=== PATIENT | male | born 1930 | race Caucasian/White ===

== ENCOUNTER 2016-06-10 15:01 | Inpatient (IN) | payer MEDICARE, OTHER ==
--- NOTE | ~2016-06-10 | CN ---
Consultation Report [place] [id number] [facility] [place]. [address] NAME: JAGDISH HUDSON : 31 STATUS : ADM IN PAT#: [id number] AGE: 85 ADM/REG DATE : 06/10/16 MR#: [id number] REPORT SERV DATE: 06/14/16 DICTATED BY: SIENNA MARTIN DATE: 06/14/16 REPORT STATUS : Draft TRANSCRIBED BY: MODL DATE: 06/14/16 PULMONARY CONSULTATION DATE OF CONSULTATION: 06/14/2016 REASON FOR CONSULTATION: Hypoxia and possible aspiration. HISTORY OF PRESENT ILLNESS: Note the history is taken primarily per the medical record. Mr. Dubon is an 85-year-old white male with history of asthma and post CVA dysphagia, who was admitted with cellulitis and alf acquired pneumonia. He was responding well to treatment with Maxipime and vancomycin, but had questionable aspiration yesterday with subsequent increase in his oxygen requirement, so Pulmonary was consulted for assistance. The patient is doing better today with improved oxygenation, though he is complaining of shortness of breath. He denies cough. He is requesting "more breathing treatments." PAST MEDICAL HISTORY: 1. Asthma. 2. 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 3. Diabetes mellitus. 4. Hypertension. 5. Hypothyroidism. 6. Anxiety/depression. 7. Dementia. 8. Nephrolithiasis. 9. Right sphenoid mass. 10.Previous appendectomy. 11.Previous incisional hernia repair. 12.Partial colectomy. FAMILY HISTORY: No documented family history of pulmonary disease in the available medical record. SOCIAL HISTORY: Per available medical records, the patient is a nonsmoker. He does not drink alcohol. He is a full-time resident of [facility]. 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 He is and has two children. MEDICATIONS: Per the available information, the patient was on no outpatient pulmonary medications. The outpatient and inpatient medications were reviewed and are as documented in the record. Consultation Report [id number] [place]. [address] NAME: JAGDISH HUDSON : 31 STATUS : ADM IN PAT#: [id number] AGE: 85 ADM/REG DATE : 06/10/16 MR#: [id number] REPORT SERV DATE: 06/14/16 DICTATED BY: SIENNA MARTIN DATE: 06/14/16 REPORT STATUS : Draft TRANSCRIBED BY: AMAN DATE: 06/14/16 ALLERGIES: PROCAINE. REVIEW OF SYSTEMS: A very limited system review was conducted and is remarkable for dyspnea as described in the history of present illness: PHYSICAL EXAMINATION: VITAL SIGNS: Temperature 98.7, heart rate 68, blood pressure 198/78, respiratory rate 16, oxygen saturation 99% on supplemental oxygen at a flow rate of 3 L/minute. GENERAL: Elderly white male. Alert, appropriate, in no apparent distress. HEENT: Normocephalic and atraumatic. There is no scleral icterus. The conjunctivae are clear. The oropharynx is clear. NECK: Supple. No lymphadenopathy was appreciated. LUNGS: Fair effort. There are diminished breath sounds at both bases with the left being greater than the right. The lungs are otherwise clear to auscultation with no wheezes, crackles, or rhonchi. HEART: Regular rate and rhythm. No ectopy was noted. ABDOMEN: Soft, nontender, nondistended. There are normal bowel sounds in all four quadrants. BILATERAL EXTREMITIES: There is significant right lower extremity swelling. Additionally, there is swelling and tenderness of the right upper extremity. There is no cyanosis or clubbing. NEUROLOGICAL: A limited exam was conducted and is remarkable for left facial droop and some left-sided weakness. SKIN: There are multiple hyperpigmented raised macules on the neck and chest. LABORATORY RESULTS: The labs were reviewed and are as documented in the record. Notable labs include a procalcitonin on admission of 4.68. The procalcitonin today is 1.61. Arterial blood gas done yesterday, 06/13/2016, was pH 7.46, pCO2 of 35, and pO2 of 110 on 100% supplemental oxygen. The white blood cell count today is 12.1. The lactate on admission was 3.1. IMAGING: The chest x-ray done today revealed cardiomegaly and bilateral effusions with associated atelectasis. The CT angiogram done this admission did not reveal any pulmonary embolism. There is a moderate left-sided pleural effusion and a small right-sided pleural effusion with associated bilateral atelectasis. There is cardiomegaly, but no infiltrates were noted. ASSESSMENT AND PLAN: Mr. Jagdish Hudson is an 85-year-old white male with asthma, who is being treated for a alf acquired pneumonia and cellulitis. He has significant atelectasis and bilateral pleural effusions noted on chest imaging. Additionally, he has ongoing aspiration as documented by Speech Therapy. There is some question of aspiration Consultation Report [address] [place] [place] [place]. [address] NAME: JAGDISH HUDSON : 32 STATUS : ADM IN [facility]#: [id number] AGE: 85 ADM/REG DATE : 06/10/16 MR#: [id number] REPORT SERV DATE: 06/14/16 DICTATED BY: SIENNA MARTIN DATE: 06/14/16 REPORT STATUS : Draft TRANSCRIBED BY: AMAN DATE: 06/14/16 yesterday. He has been responding well to Maxipime and vancomycin. He appears to be better today and closer to his baseline, though he continues to complain of shortness of breath. Recommend continuing antibiotics. As noted, he is responding well to Maxipime and vancomycin. Would increase the frequency of his bronchodilators from q.6 hours to q.4 hours. Recommend improving pulmonary toilet by adding EzPAP to his regimen. Wean his supplemental oxygen as tolerated. Recommend adding a nebulized steroid, budesonide 0.5 mg twice daily will be added to his regimen. As noted, Speech Therapy indicates he is high risk for recurrent aspiration. Would follow their recommendations regarding his oral intake. Would watch his fluid status, check his BNP and diurese if necessary. Thank you very much for this consultation. PS/AMAN Sienna Martin M.D. / [id number] CC: Mary Thomson M.D.
--- NOTE | ~2016-06-10 | CN ---
Consultation Report [facility] [address] [place]. [address] NAME: THIAGO HUDSON : 32 STATUS : ADM IN [facility]#: [id number] AGE: 85 ADM/REG DATE : 06/10/16 MR#: [id number] REPORT SERV DATE: 06/12/16 DICTATED BY: AMPARO WILLIAM DATE: 06/11/16 REPORT STATUS : Draft TRANSCRIBED BY: MODL DATE: 06/11/16 HAND CONSULTATION DATE OF CONSULTATION: 06/11/2016 REASON FOR CONSULTATION: Right upper extremity hand and wrist pain. History of questionable fall, gout versus septic arthritis. HISTORY OF PRESENT ILLNESS: Mr. Hudson is an 85-year-old right-hand dominant gentleman who is a [facility] resident status post CVA affecting his left upper extremity who is admitted on the 06/10/2016 with sepsis, pneumonia, and cellulitis and was also complaining of right upper extremity pain. He had a questionable fall on Saturday per his family members, although the patient does not recall it. He says the right shoulder and wrist and hand has been hurting since. He has a very limited motion and he is unable to really localize his pain. Denies any history of gallop or otherwise denies any other trauma. No formal treatments. Had x-rays which were reported in the ER of that shoulder to be negative. He has been on IV antibiotics for the sepsis and the cellulitis. PAST MEDICAL HISTORY: Significant for CVA. He is a [facility] resident. Diabetes, nephrolithiasis, asthma, hypertension, hypothyroidism, anxiety, dementia. SURGICAL HISTORY: Includes partial colectomy, appendectomy, incisional hernia surgery. ALLERGIES: PROCAINE. MEDICATIONS: Please see the list. REVIEW OF SYSTEMS: Negative, except as above. PHYSICAL EXAMINATION: Resting comfortably in the hospital bed. Examination of the left upper extremity. Essentially, no active motion, very limited active motion secondary to the stroke. There is no tenderness. There are no external signs of trauma. There is no erythema or warmth or ecchymosis. Examination of the right upper extremity, he is tender about the shoulder, upper arm, elbow, forearm, wrist, and hand, more so dorsally than volarly. There is some pitting edema on the dorsal aspect of his forearm, wrist, and hands. I do not appreciate an effusion in the joint. He is diffusely tender over the dorsal aspect of the forearm, wrist, and hand. It is not focal. He has no pain with passive motion about his wrist joint. No signs or symptoms of septic arthritis. At this time, no significant tenderness in his digits. He has a limited resolution manager secondary to pain. Grossly neurovascularly intact to light touch. There is no significant erythema or ecchymosis. No external signs of trauma. No focal bony tenderness. Active range of motion is limited secondary to pain. Consultation Report [place] [address] [place]. [address] NAME: THIAGO HUDSON : 32 STATUS : ADM IN PAT#: [id number] AGE: 85 ADM/REG DATE : 06/10/16 MR#: [id number] REPORT SERV DATE: 06/12/16 DICTATED BY: AMPARO WILLIAM DATE: 06/11/16 REPORT STATUS : Draft TRANSCRIBED BY: AMAN DATE: 06/11/16 STUDIES: X-rays of the right wrist and hand were reviewed, suboptimal technique, perhaps due to his pain, but no discrete fractures or joint abnormalities are visualized. ASSESSMENT AND PLAN: An 85-year-old with right upper arm, hand, and wrist pain. At this point, I would recommend a splint as needed for comfort, active range of motion and elevation of the distal extremity. The exam at this point is not consistent with a septic joint given the dorsal edema and pain, perhaps early cellulitis. I do not believe the aspiration is indicated. Given the more diffuse nature of the pain, I will monitor his course on IV antibiotics in the next 24 hours if he fails to improve, then we may proceed with a steroid injection in the wrist joint, but again I do not believe that is the only focus of his pain and this may be more of a diffuse contusion secondary to a fall and/or superficial infectious process, however, we will continue to monitor his clinical course with you. PERCY paro William M.D. / [id number] CC: Raphael Mya, Mary Darden M.D.
--- NOTE | ~2016-06-10 | DS ---
Discharge Summary [place] [address] [place]. [address] NAME: THIAGO PUCKETT : 32 STATUS : DIS IN PAT#: [id number] AGE: 85 ADM/REG DATE : 06/10/16 MR#: [id number] REPORT SERV DATE: 06/20/16 DICTATED BY: RAPHAEL ROQUE DATE: 06/19/16 REPORT STATUS : Draft TRANSCRIBED BY: MODL DATE: 06/19/16 ADMISSION DATE: 06/10/2016 DISCHARGE DATE: 06/19/2016 DISCHARGE DIAGNOSES: 1. Acute on chronic respiratory failure. 2. Pneumonia. 3. Recent fall with injury to the right upper extremity. 4. Remote history of cerebrovascular accident. 5. Type 2 diabetes mellitus. 6. Hypertension. 7. Hypothyroidism. 8. Dementia. 9. Cellulitis. 10.Anxiety disorder. 11.History of nephrolithiasis. 12.Wheelchair and [facility]bound state at the [facility]. CONSULTANTS DURING THIS HOSPITALIZATION: Orthopedic Surgery and Pulmonology. INVASIVE PROCEDURES AND IMAGING DONE DURING THIS HOSPITALIZATION: Please refer to interim summary dictated by Dr. Reina on 06/18/2016. BRIEF HISTORY OF PRESENT ILLNESS: The patient is an 85-year-old male with multiple medical issues, who was at [facility], came to the hospital with complaints of shortness of breath, cellulitis, recent fall with injury. So, he was admitted. For detailed history and physical exam, please see note dictated by Dr. Weston Dodd on 06/10/2016. HOSPITAL COURSE: After being admitted to the hospital, this patient was cared for by Dr. Reina. Please refer to interim summary dictated by Dr. Reina on 06/18/2016. I took over this patient's care on 06/19/2016. When I saw this patient preparations for hospice and enrollment in hospice were already underway. Hospice saw the patient, and patient was accepted in hospice. No further changes were made. All other antibiotics were discontinued as well as his Dobhoff tube was discontinued. This patient had severe dysphagia on his swallow study and it was best that this patient be placed in hospice. The patient is being discharged to [facility] facility with hospice. DISPOSITION: Will be at the skilled facility with hospice. ACTIVITY: As tolerated. DIET: As tolerated. MEDICATIONS: Will be deferred to hospice. FOLLOWUP: Will be done by hospice. Discharge Summary [place] [address] [place]. [address] NAME: THIAGO PUCKETT : 31 STATUS : DIS IN PAT#: [id number] AGE: 85 ADM/REG DATE : 06/10/16 MR#: [id number] REPORT SERV DATE: 06/20/16 DICTATED BY: RAPHAEL ROQUE DATE: 06/19/16 REPORT STATUS : Draft TRANSCRIBED BY: AMAN DATE: 06/19/16 More than 25 minutes spent planning this patient's discharge, reconciling medications, discussing hospice with the daughter at the bedside, and arranging proper transfer to senior care facility with hospice. INNA/AMAN Raphael Roque M.D. / [id number] CC: Mary Murphy M.D.
--- NOTE | ~2016-06-10 | HP ---
History And Physical [address] [id number] [place]. [address] NAME: THIAGO PUCKETT : 32 STATUS : ADM IN PAT#: [id number] AGE: 85 ADM/REG DATE : 06/10/16 MR#: [id number] REPORT SERV DATE: 06/10/16 DICTATED BY: PHILL SINGH DATE: 06/10/16 REPORT STATUS : Draft TRANSCRIBED BY: MODL DATE: 06/10/16 DATE OF ADMISSION: 06/10/2016 CHIEF COMPLAINT: An 85-year-old male presenting from [facility] with shortness of breath and severe right leg cellulitis. HISTORY OF PRESENT ILLNESS: The patient's history was obtained through careful interview with the patient and son coupled with review of [facility] medical records. The patient about six days ago was trying to transfer at the nursing facility and had a severe fall. He apparently has had right arm and shoulder pain ever since that time. He does not want to use his right hand and arm at all. He is unable to describe a precise severity or quality of that pain, but he has been "hollering" out because of pain often. Another concern has been problems with redness of his legs over several months, but over the last several days, his right leg has had extreme rosa red erythema with increasing pain and swelling. It has become hot to the touch, but there has been no ulcerations or purulent drainage. Also, over these last several days, he has had one episode of severe nausea and vomiting (about five days ago) without recurrence. There has been no diarrhea. No aspiration event that has been witnessed despite the vomiting episode. He has had shortness of breath characterized by dyspnea on exertion, but no orthopnea. His breathing is described as "hard, infrequent." Today, he was extremely lethargic and more confused. He "slept all day long" and was difficult to arouse with a poor appetite. He describes a slight nonproductive cough. No chest pain. No leg pain currently. No abdominal pain. No headache. No back pain. REVIEW OF SYSTEMS: Otherwise, a 14-point review of systems was obtained and was negative. PAST MEDICAL HISTORY: 1. 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 2. Diabetes. 3. Nephrolithiasis. 4. Asthma. 5. Hypertension. 6. Hypothyroidism. 7. Right sphenoid sinus mass. 8. Anxiety. 9. Dementia. History And Physical [address] [address] NAME: THIAGO PUCKETT : 32 STATUS : ADM IN PAT#: [id number] AGE: 85 ADM/REG DATE : 06/10/16 MR#: [id number] REPORT SERV DATE: 06/10/16 DICTATED BY: PHILL SINGH DATE: 06/10/16 REPORT STATUS : Draft TRANSCRIBED BY: AMAN DATE: 06/10/16 PAST SURGICAL HISTORY: 1. Partial colectomy. 2. Appendectomy. 3. Incisional hernia repair. ALLERGIES: PROCAINE. SOCIAL HISTORY: No tobacco abuse. No alcohol abuse. He is . Resides full-time at [facility]. He is wheelchair bound. Retired from doing shipping and loading work. He has a son and a daughter who live locally and help look after him. One of his sons has been debilitated by stroke and is at [facility] as well. FAMILY HISTORY: Son with stroke, chronic correction resident as well. Mother at 92 years of age. Siblings and father with diabetes. CURRENT MEDICATIONS: Include Tylenol p.r.n.; albuterol inhaler; Norvasc 10 mg p.o. daily; aspirin 81 mg p.o. daily; Lipitor 40 mg p.o. daily; Dulcolax; captopril 25 mg p.o. b.i.d.; Coreg 6.25 mg p.o. b.i.d.; Ancef 1 g IM q.12, started a few days ago; vitamin D; Plavix 75 mg p.o. daily; Colace 100 mg p.o. b.i.d.; Lexapro 10 mg p.o. daily; Lizett 180 mg p.o. daily; Lasix 40 mg p.o. daily; NovoLog sliding scale insulin; Levemir 15 units subcutaneous twice a day; ketoconazole cream; Prevacid 30 mg p.o. daily; Synthroid 25 mcg p.o. daily; metformin 500 mg p.o. b.i.d.; milk of magnesia; Remeron 15 mg p.o. q.h.s.; Zofran p.r.n.; MiraLAX packet daily; potassium 30 mEq p.o. daily; Januvia 100 mg p.o. daily; Flomax 0.4 mg p.o. daily; and fluticasone nasal spray. PHYSICAL EXAMINATION: VITAL SIGNS: Temperature 98.3, pulse 67, blood pressure 144/49, respiratory rate 36, and O2 saturation 93% on room air. GENERAL: A pleasant, cooperative male, obviously confused and debilitated by a chronic illness. He is in slight acute distress because of shortness of breath, but not too toxic in appearance. HEENT: Pupils are equal, round, and reactive to light. No conjunctival pallor. No scleral icterus. Nares are patent. Oropharynx is clear of obstruction. Very dry mucous membranes. NECK: Trachea midline. No thyromegaly. LYMPH: No cervical lymphadenopathy. No supraclavicular lymphadenopathy. No right inguinal lymphadenopathy. RESPIRATORY: The patient has scattered rhonchi on examination. No wheezes. No rales. He does not participate with egophony testing. He has a labored respiratory effort, but is not using accessory muscles to help with his breathing. CARDIOVASCULAR: Regular rate and rhythm. No murmurs, rubs, or gallops. The patient has bilateral lower extremity edema, the right greater than left, but also some right upper extremity edema that is pitting and tender to palpation. DERMATOLOGICAL: Warm and dry extremities. No pallor, no cyanosis, but his right leg shows an extensive pattern of erythema, heat, swelling, and tenderness. No ulceration, no purulent drainage. There is also some swelling and tenderness over his right upper extremity around his hands and wrist and forearm, but there is no erythema, ulceration, or History And Physical [address] [address] NAME: THIAGO PUCKETT : 32 STATUS : ADM IN [facility]#: [id number] AGE: 85 ADM/REG DATE : 06/10/16 MR#: [id number] REPORT SERV DATE: 06/10/16 DICTATED BY: PHILL SINGH DATE: 06/10/16 REPORT STATUS : Draft TRANSCRIBED BY: MODL DATE: 06/10/16 heat. PSYCHIATRIC: Normal affect, a very pleasant mood, very cooperative. He is lethargic, but easily arousable. He is disoriented to time, location, and his recent history. LABORATORY DATA: White blood cell count 14.6, hemoglobin 11, hematocrit 34, and platelets 176. Sodium 143, potassium 4.1, chloride 104, bicarb 25, BUN 46, creatinine 0.27, and glucose 139. Procalcitonin 6.69, albumin 2.4, and lactic acid 5.4. INR 1.2. AST 47, ALT 24, alkaline phosphatase 130, and total bilirubin 0.6. STUDIES: 1. Chest x-ray by my own evaluation shows patchy infiltrates of the right upper lung, right middle lung, and right lower lung, also an infiltrate in the left lower lung. 2. EKG by my own evaluation shows sinus rhythm, inferior Q-waves. 3. A venous Doppler ultrasound of the right lower extremity done here in the emergency department showed no evidence of lower extremity DVT. ASSESSMENT AND PLAN: 1. Severe sepsis with lactate of 5.4, encephalopathy, white blood count of 14.6, and tachypnea. Check blood cultures. Check urinalysis. Start on broad IV antibiotics including IV cefepime and IV vancomycin. 2. Facility-acquired pneumonia. Check blood cultures. Check swallow evaluation. Because of aspiration risk, placed on IV antibiotics. 3. Right leg cellulitis. Placed on IV vancomycin. A negative Doppler ultrasound for deep venous thrombosis. 4. Severe right hand pain. Check x-ray of the arm and hand. Check a Doppler ultrasound of upper extremity. 5. Diabetes. Check hemoglobin A1c. Place on sliding scale insulin. 6. Late effects of stroke. Wheelchair bound and debilitated. 7. Previous history of sphenoid mass. We will follow up with family as to possibly redoing some imaging here to see if it has progressed. I did discuss this case with Dr. Maynor Sales, critical care physician. KPL/MODL Phill Singh M.D. / [id number] CC: Mary Murphy M.D.
--- NOTE | ~2016-06-10 | IDS ---
Interim Discharge Summary [facility] [address] [place]. [address] NAME: THIAGO PUCKETT : 32 STATUS : ADM IN [facility]#: [id number] AGE: 85 ADM/REG DATE : 06/10/16 MR#: [id number] REPORT SERV DATE: 06/18/16 DICTATED BY: SHAYNE JACOBO DATE: 06/18/16 REPORT STATUS : Draft TRANSCRIBED BY: MODL DATE: 06/18/16 ADMISSION DATE: 06/10/2016 DISCHARGE DATE: CURRENT HOSPITAL DIAGNOSES: 1. Respiratory distress pneumonia. 2. Recent fall with injury to right upper extremity. 3. Remote stroke. 4. Diabetes. 5. Hypertension. 6. Hypothyroidism. 7. Dementia. 8. Cellulitis. CONSULTATIONS: 1. Orthopedics. 2. Pulmonary. PROCEDURES: 1. CTA of the chest done on 06/13/2016, showing beam hardening artifact from the patient's arm by the side as well as respiratory motion artifact. No CT evidence of pulmonary embolism. Segmental size atelectasis right lower lobe with underlying small pleural effusion and multisegment atelectasis, left lower lobe with underlying moderate pleural effusion, cardiomegaly, and nonspecific hepatic steatosis. 2. Venous Doppler of the lower extremity, right, done on 06/10/2016, showing no DVT. 3. Upper extremity Doppler on the right showing no evidence of DVT. 4. 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 Pituitary is normal. Generalized atrophy. No evidence of acute infarction or bleed. Evidence of some old ischemic injury in the right and left basal ganglia and centrum semiovale, lesion of burden, mild brainstem atrophy also identified. CURRENT PHYSICAL FINDINGS AND HISTORY OF PRESENT ILLNESS: Please see the initial dictated H and P by Dr. Dodd. In brief, the patient is an 85-year-old male with above medical history presented on 06/10/[address] [facility] with a complaint of shortness of breath, cellulitis, and recent fall with injury. Vital signs at the time of admission: Blood pressure was 144/49, temperature was 98.3, and the patient has not had a temperature above 100. Heart rates have been consistently in the 60s to 70s. Lab work at time of admission: ABG showed a pH of 7.39, CO2 of 43, O2 of 65, and sat of 92%. Initial procalcitonin was 6.69, had a sequentially decreased to 1.61 on 06/14/2016. Initial electrolytes were unremarkable. He has subsequently had some hypernatremia. Sodium was in the 150s. TSH was 1.2 and troponin on admission was 0.03. BNP was 120. His maximum BMP here has been 206. A1c was 7.5. Initial lactate was 5.4, most recent on 06/12/2016 was 2.1. Initial white count was 14.6, it is steadily decreased during his hospital stay. No significant anemia. Urinalysis was unremarkable. Blood cultures 1 of 2 grew out negative Stapjamari felt contamination, felt to be a contaminant. The patient was initially admitted to the floor. Interim Discharge Summary [address] [address] NAME: THIAGO PUCKETT : 32 STATUS : ADM IN [facility]#: [id number] AGE: 85 ADM/REG DATE : 06/10/16 MR#: [id number] REPORT SERV DATE: 06/18/16 DICTATED BY: SHAYNE JACOBO DATE: 06/18/16 REPORT STATUS : Draft TRANSCRIBED BY: AMAN DATE: 06/18/16 He was placed on electrolyte protocol. Speech Therapy was consulted, as there was some concern of aspiration. Routine lab was ordered. MRI was ordered. Doppler ultrasounds were ordered. He was started on DVT prophylaxis and IV fluids as well as sliding scale insulin. Maxipime and vancomycin were selected as his antibiotics. Orthopedic consult was also requested. Orthopedics recommended a splint to the right upper extremity and no other intervention. I took over his care on 06/12/2016. He had failed his initial speech therapy screening. He was made n.p.o. Hydralazine was given for his hypertension. IV fluids were decreased, and his Levemir was discontinued since he was n.p.o. Sliding scale was continued. A followup chest x-ray was requested on 06/13/2016. He then had an acute episode of shortness of breath. EKG, ABG, BNP, and troponin were requested. He was transitioned to the [facility]. A stat CTA of the chest was done with results noted as above. He seemed to improve spontaneously from that episode. His oxygen requirements went down relatively rapidly. He did not require BiPAP. He was able to transition out of the IMCU in several days. His Synthroid was transitioned over to IV. Pulmonary was asked to consult due to his episode of respiratory distress. No further recommendations were given at that time. Other than change in his nebulizer treatments. He was not felt medically stable to reattempt swallowing study because he had been without nutrition and Dobbhoff was placed without incident and his home medications were initiated and tube feeds were initiated. PT was also requested. He was started back on his Lasix and serial labs were followed. He tolerated re initiation of tube feeds without any incident. He was transferred to the floor on 06/16/2016. His creatinine and sodium were getting high. He was given some half-normal saline. His Lasix was temporarily held. His antibiotics were continued on 06/17/2016. Serial chest x-rays were followed. He was noted to have an effusion. His Lasix was restarted, and his electrolytes were continued to replace. He was started on Levemir and repeat swallow study was requested. 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 BNP, ABGs, chest x-ray, and high-flow O2 as well as Solu-Medrol and Lasix were given. Pulmonary re-consulted and recommended continued diuresis. Because of his overall decline and recurrent episodes of respiratory distress, family decided on DNR status and later in the day hospice. Further meetings with hospice will be tomorrow morning. Issues currently are his respiratory status, need for diuresis, and frequent adjustments on his blood sugars given his relative hyperglycemia. TLF/MODL Shayne Jacobo M.D. / [id number] CC: Shayne Jacobo M.D.
[~2016-06-10 15:01] MED LIST: ALLEGRA180 PO; ASAB PO; CAPTOPRIL PO; COREG6; COREG6 PO; FLOMAX4 PO; FORTAMET500 MG PO; GLUCOPHAGE1000 MG PO; HYDROCHLOROTHIAZIDE PO; JANUVIA100 MG PO; LEVAQUIN750 MG PO; NORV10 PO; P10 PO; PRILO PO; STARLIX60 PO; VITAMIN B12 OTC PO
[2016-06-10 17:27] LABS: LACTATE 5.4 MMOL/L (0.3-2.4)
[2016-06-10 17:40] LABS: WBC (NOT ORDERED) (RFLEX) 0 (0-5)
[2016-06-10 17:45] LABS: INTERNATIONAL NORMAL RATI 1.2 UNITS (-); PARTIAL THROMBO TIME 40.8 SEC (22.5-37.2); PROTIME (NOT ORD) 14.9 SEC (12.0-14.5)
[2016-06-10 17:53] LABS: CALCIUM, SERUM 8.8 MG/DL (8.5-10.4); CHLORIDE, SERUM 104 MMOL/L (96-112); CREATININE 1.27 MG/DL (0.70-1.30); GFR AFRICAN AMERICAN 60 ML/MIN (>=60); GFR NON AFRICAN AMERICAN 52 ML/MIN (>=60); POTASSIUM, SERUM 4.1 MMOL/L (3.5-5.3); SGOT(AST) 47 U/L (5-40); SGPT(ALT) 24 U/L (5-65); SODIUM, SERUM 143 MMOL/L (135-148); TOTAL BILIRUBIN 0.8 MG/DL (0-1.2); TOTAL PROTEIN 6.4 G/DL (6.0-8.5)
[2016-06-10 17:54] LABS: A/G RATIO 0.6 (0.7-1.9); ALBUMIN 2.4 G/DL (3.5-5.0); ALKALINE PHOSPHATASE 130 U/L (45-117); BUN (BLOOD UREA NITROGEN) 46 MG/DL (6-23); CO2 (CARBON DIOXIDE) 25 MMOL/L (24-34); GLUCOSE, SERUM 139 MG/DL (60-99)
[2016-06-10 17:56] LABS: ASCORBIC ACID (UR NOT ORDER) NEG (NEG); BILIRUBIN, URINE NEGATIVE (NEG); KETONE, URINE NEGATIVE (NEG); LEUKOCYTE ESTERASE(NOT OR NEG (NEG); NITRITE (URINE) NEG (NEG)
[2016-06-10 18:19] LABS: PROCALCITONIN 6.69 ng/mL (<0.5)
[2016-06-10 19:06] LABS: BASOPHILS 0.1 %; BASOPHILS ABSOLUTE 0.02 10/3/uL (0.0-0.16); EOSINOPHILS 0.5 %; EOSINOPHILS ABSOLUTE 0.07 10/3/uL (0.0-0.53); HEMATOCRIT 34.5 % (40.0-51.0); HEMOGLOBIN 11.4 g/dL (13.6-17.8); IMMATURE GRANULOCYTES 1.2 %; IMMATURE GRANULOCYTES ABSOLUTE 0.17 10/3/uL (0.0-0.11); LYMPHOCYTES ABSOLUTE 1.89 10/3/uL (0.67-4.30); MANUAL DIFF NO %; MEAN CORPUSCULAR VOLUME 81.8 fL (80-100); MEAN PLATELET VOLUME 9.4 fL (9.2-13.0); MONOCYTES 8.5 %; MONOCYTES ABSOLUTE 1.24 10/3/uL (0.21-1.20); NEUTROPHILS 76.7 %; NEUTROPHILS ABSOLUTE 11.17 10/3/uL (2.02-8.40); PLATELET COUNT 176 10/3/uL (150-400); RBC DISTRIBUTION WIDTH 15.9 % (12.0-16.0); RED CELL COUNT 4.22 10/6/uL (4.7-6.1); WHITE BLOOD CELLS 14.6 10/3/uL (4.5-10.5)
[2016-06-10 19:08] LABS: ER CBC TAT 1 Hrs 39 Mins
[2016-06-10] MEDS ORDERED: NORV10 PO (19:11)
[2016-06-10] MEDS ORDERED: LIPITOR40 PO (19:11)
[2016-06-10] MEDS ORDERED: CAP25 PO (19:11)
[2016-06-10] MEDS ORDERED: ASAB PO (19:11)
[2016-06-10] MEDS ORDERED: CEFAZ1 IM (19:12)
[2016-06-10] MEDS ORDERED: COREG6 PO (19:12)
[2016-06-10] MEDS ORDERED: DSS PO (19:13)
[2016-06-10] MEDS ORDERED: PLAVIX PO (19:13)
[2016-06-10] MEDS ORDERED: LEXAPRO10 PO (19:14)
[2016-06-10] MEDS ORDERED: ALLEGRA180 PO (19:14)
[2016-06-10] MEDS ORDERED: L40 PO (19:17)
[2016-06-10] MEDS ORDERED: FLUTICASONE TOP (19:17)
[2016-06-10] MEDS ORDERED: NIZORALCRM TOP ×2 (19:18→19:28)
[2016-06-10] MEDS ORDERED: JANUVIA100 MG PO (19:18)
[2016-06-10] MEDS ORDERED: LEVEMFLXPN SC (19:19)
[2016-06-10] MEDS ORDERED: PREV30 PO (19:19)
[2016-06-10] MEDS ORDERED: GLUCPH PO (19:20)
[2016-06-10] MEDS ORDERED: SYN.025B PO (19:20)
[2016-06-10] MEDS ORDERED: REM15 PO (19:21)
[2016-06-10] MEDS ORDERED: NOVOPEN SC (19:22)
[2016-06-10] MEDS ORDERED: MIRALAX POWDER1 PKT PO (19:22)
[2016-06-10] MEDS ORDERED: KDUR10 PO (19:23)
[2016-06-10] MEDS ORDERED: FLOMAX4 PO (19:23)
[2016-06-10] MEDS ORDERED: MAXIMUM D3 PO (19:24)
[2016-06-10] MEDS ORDERED: DUONEB INH (19:25)
[2016-06-10] MEDS ORDERED: BISR PR (19:25)
[2016-06-10] MEDS ORDERED: T PO (19:25)
[2016-06-10] MEDS ORDERED: MOMUD PO (19:26)
[2016-06-10] MEDS ORDERED: ZOFRAN4 PO (19:27)
[2016-06-10] MEDS ORDERED: TRIAMCINOLONE C80 GM TOP (19:27)
[2016-06-10] MEDS ORDERED: ACET500CAP PO (19:29)
[2016-06-11 07:37] LABS: HEMATOCRIT 33.3 % (40.0-51.0); HEMOGLOBIN 11.3 g/dL (13.6-17.8); MEAN CORPUS HGB CONC 33.9 g/dL (32.0-36.0); MEAN CORPUSCULAR HEMOGLOB 27.8 pg (26.0-34.0); MEAN CORPUSCULAR VOLUME 81.8 fL (80-100); MEAN PLATELET VOLUME 9.2 fL (9.2-13.0); PLATELET COUNT 174 10/3/uL (150-400); RBC DISTRIBUTION WIDTH 15.8 % (12.0-16.0); RED CELL COUNT 4.07 10/6/uL (4.7-6.1); WHITE BLOOD CELLS 11.3 10/3/uL (4.5-10.5)
[2016-06-11 07:40] LABS: MANUAL DIFF YES %
[2016-06-11 07:44] LABS: INTERNATIONAL NORMAL RATI 1.2 UNITS (-); PARTIAL THROMBO TIME 46.2 SEC (22.5-37.2); PROTIME (NOT ORD) 15.4 SEC (12.0-14.5)
[2016-06-11 08:00] LABS: A/G RATIO 0.5 (0.7-1.9); ALBUMIN 2.1 G/DL (3.5-5.0); ALKALINE PHOSPHATASE 127 U/L (45-117); BUN (BLOOD UREA NITROGEN) 42 MG/DL (6-23); CALCIUM, SERUM 8.3 MG/DL (8.5-10.4); CHLORIDE, SERUM 106 MMOL/L (96-112); CO2 (CARBON DIOXIDE) 26 MMOL/L (24-34); CREATININE 1.16 MG/DL (0.70-1.30); GFR AFRICAN AMERICAN 67 ML/MIN (>=60); GFR NON AFRICAN AMERICAN 58 ML/MIN (>=60); GLOBULIN 3.9 G/DL (2.5-4.1); GLUCOSE, SERUM 172 MG/DL (60-99); POTASSIUM, SERUM 3.6 MMOL/L (3.5-5.3); SGOT(AST) 42 U/L (5-40); SGPT(ALT) 21 U/L (5-65); SODIUM, SERUM 143 MMOL/L (135-148); TROPONIN I 0.04 NG/ML (<0.05)
[2016-06-11 08:15] LABS: BAND NEUTROPHILS 8 %; IMMATURE GRANS ABSOLUTE (CALC) 0.11 10/3/uL (0.0-0.11); LYMPHOCYTES 10 %; LYMPHOCYTES ABSOLUTE (CALC) 1.13 10/3/uL (0.67-4.30); METAMYELOCYTES 1 %; MONOCYTES 6 %; MONOCYTES ABSOLUTE (CALC) 0.68 10/3/uL (0.21-1.20); NEUTROPHILS ABSOLUTE (CALC) 9.38 10/3/uL (2.02-8.40); PLATELET ESTIMATE ADQ (ADEQUATE); RBC MORPHOLOGY NORM (NORMAL); SEGMENTED NEUTROPHIL (0) 75 %; TOTAL NUCLEATED CELLS 100
[2016-06-11 08:44] LABS: PROCALCITONIN 4.68 ng/mL (<0.5)
[2016-06-11 12:53] LABS: GLYCOHEMOGLOBIN (HbA1c) 7.5 % (4.7-6.1)
[2016-06-12 05:37] LABS: BASOPHILS 0.2 %; BASOPHILS ABSOLUTE 0.02 10/3/uL (0.0-0.16); EOSINOPHILS 0.9 %; HEMATOCRIT 33.5 % (40.0-51.0); IMMATURE GRANULOCYTES 1.9 %; IMMATURE GRANULOCYTES ABSOLUTE 0.21 10/3/uL (0.0-0.11); LYMPHOCYTES 18.7 %; LYMPHOCYTES ABSOLUTE 2.03 10/3/uL (0.67-4.30); MANUAL DIFF NO %; MEAN CORPUS HGB CONC 32.8 g/dL (32.0-36.0); MEAN CORPUSCULAR HEMOGLOB 27.1 pg (26.0-34.0); MEAN CORPUSCULAR VOLUME 82.5 fL (80-100); MEAN PLATELET VOLUME 9.1 fL (9.2-13.0); MONOCYTES 8.6 %; MONOCYTES ABSOLUTE 0.93 10/3/uL (0.21-1.20); NEUTROPHILS 69.7 %; NEUTROPHILS ABSOLUTE 7.56 10/3/uL (2.02-8.40); PLATELET COUNT 218 10/3/uL (150-400); RED CELL COUNT 4.06 10/6/uL (4.7-6.1); WHITE BLOOD CELLS 10.9 10/3/uL (4.5-10.5)
[2016-06-12 05:49] LABS: CHLORIDE, SERUM 105 MMOL/L (96-112); CO2 (CARBON DIOXIDE) 28 MMOL/L (24-34); CREATININE 1.02 MG/DL (0.70-1.30); GFR AFRICAN AMERICAN 78 ML/MIN (>=60); GFR NON AFRICAN AMERICAN 67 ML/MIN (>=60); POTASSIUM, SERUM 3.3 MMOL/L (3.5-5.3); SODIUM, SERUM 142 MMOL/L (135-148)
[2016-06-12 05:53] LABS: BUN (BLOOD UREA NITROGEN) 33 MG/DL (6-23); GLUCOSE, SERUM 95 MG/DL (60-99)
[2016-06-12 06:43] LABS: PROCALCITONIN 3.01 ng/mL (<0.5)
[2016-06-13 11:01] LABS: BUN (BLOOD UREA NITROGEN) 26 MG/DL (6-23); CHLORIDE, SERUM 108 MMOL/L (96-112); CO2 (CARBON DIOXIDE) 25 MMOL/L (24-34); CREATININE 0.91 MG/DL (0.70-1.30); GFR AFRICAN AMERICAN 89 ML/MIN (>=60); GFR NON AFRICAN AMERICAN 77 ML/MIN (>=60); GLUCOSE, SERUM 132 MG/DL (60-99); POTASSIUM, SERUM 3.6 MMOL/L (3.5-5.3); SODIUM, SERUM 143 MMOL/L (135-148)
[2016-06-13 14:54] LABS: VANCOMYCIN TROUGH 11.3 MCG/ML (10.0-20.0)
[2016-06-13 16:09] LABS: INSTRUMENT SERIAL # 8083
[2016-06-13 16:10] LABS: ALLENS TEST Pos; BE (BASE EXCESS) 0.3 MEQ/L (0 +/- 2.5); CARBOXYHEMOGLOBIN 0.9 % (0-3); HCO3 (ACTUAL BICARBONATE) 25.4 MEQ/L (23-27); HEMOBLOGIN CONTENT 12.6 G/DL (14-18); METHEMOGLOBIN 0.2 % (0-3); O2 CONTENT 16.2 VOL% (18-24); PCO2 (CO2 TENSION) 43 MMHG (35-45); PO2 (O2 TENSION) 65 MMHG (79-93); SAMPLE Arterial; pH 7.39 (7.37-7.43)
[2016-06-13 16:27] LABS: BUN (BLOOD UREA NITROGEN) 25 MG/DL (6-23); CALCIUM, SERUM 8.1 MG/DL (8.5-10.4); CHLORIDE, SERUM 110 MMOL/L (96-112); CREATININE 0.89 MG/DL (0.70-1.30); GFR AFRICAN AMERICAN 91 ML/MIN (>=60); GFR NON AFRICAN AMERICAN 79 ML/MIN (>=60); GLUCOSE, SERUM 151 MG/DL (60-99); POTASSIUM, SERUM 3.7 MMOL/L (3.5-5.3); SODIUM, SERUM 145 MMOL/L (135-148); TROPONIN I 0.03 NG/ML (<0.05)
[2016-06-13 16:28] LABS: CO2 (CARBON DIOXIDE) 26 MMOL/L (24-34)
[2016-06-13 16:40] LABS: HEMATOCRIT 33.7 % (40.0-51.0); HEMOGLOBIN 10.9 g/dL (13.6-17.8); MANUAL DIFF YES %; MEAN CORPUS HGB CONC 32.3 g/dL (32.0-36.0); MEAN CORPUSCULAR VOLUME 83.4 fL (80-100); MEAN PLATELET VOLUME 9.2 fL (9.2-13.0); PLATELET COUNT 272 10/3/uL (150-400); RBC DISTRIBUTION WIDTH 16.4 % (12.0-16.0); RED CELL COUNT 4.04 10/6/uL (4.7-6.1); WHITE BLOOD CELLS 11.5 10/3/uL (4.5-10.5)
[2016-06-13 17:44] LABS: ANISOCYTOSIS 1+ (5-10/OIF) (0-5/OIF); BAND NEUTROPHILS 16 %; BURR CELLS 1+ (3-10/OIF) (0-2/OIF); LYMPHOCYTES 3 %; LYMPHOCYTES ABSOLUTE (CALC) 0.35 10/3/uL (0.67-4.30); MONOCYTES 4 %; MONOCYTES ABSOLUTE (CALC) 0.46 10/3/uL (0.21-1.20); SEGMENTED NEUTROPHIL (0) 77 %; TOTAL NUCLEATED CELLS 100; TOXIC GRANULATION 1+
[2016-06-13 20:41] LABS: INSTRUMENT SERIAL # 8083; PCO2 (CO2 TENSION) 35 MMHG (35-45); pH 7.46 (7.37-7.43)
[2016-06-13 20:42] LABS: ALLENS TEST Pos; BE (BASE EXCESS) 0.8 MEQ/L (0 +/- 2.5); CARBOXYHEMOGLOBIN 0.4 % (0-3); DEVICE NRB; HCO3 (ACTUAL BICARBONATE) 24.3 MEQ/L (23-27); HEMOBLOGIN CONTENT 11.7 G/DL (14-18); METHEMOGLOBIN 0.1 % (0-3); O2 CONTENT 16.3 VOL% (18-24); OPERATOR ID 33214; PO2 (O2 TENSION) 110 MMHG (79-93); SAMPLE Arterial
[2016-06-14 10:30] LABS: BASOPHILS 0.2 %; BASOPHILS ABSOLUTE 0.03 10/3/uL (0.0-0.16); EOSINOPHILS 0.5 %; EOSINOPHILS ABSOLUTE 0.06 10/3/uL (0.0-0.53); HEMATOCRIT 34.4 % (40.0-51.0); HEMOGLOBIN 11.2 g/dL (13.6-17.8); IMMATURE GRANULOCYTES 2.1 %; IMMATURE GRANULOCYTES ABSOLUTE 0.25 10/3/uL (0.0-0.11); LYMPHOCYTES 13.2 %; LYMPHOCYTES ABSOLUTE 1.59 10/3/uL (0.67-4.30); MEAN CORPUS HGB CONC 32.6 g/dL (32.0-36.0); MEAN CORPUSCULAR HEMOGLOB 27.1 pg (26.0-34.0); MEAN CORPUSCULAR VOLUME 83.1 fL (80-100); MEAN PLATELET VOLUME 8.9 fL (9.2-13.0); MONOCYTES 6.2 %; MONOCYTES ABSOLUTE 0.75 10/3/uL (0.21-1.20); NEUTROPHILS 77.8 %; NEUTROPHILS ABSOLUTE 9.41 10/3/uL (2.02-8.40); PLATELET COUNT 338 10/3/uL (150-400); RBC DISTRIBUTION WIDTH 16.6 % (12.0-16.0); RED CELL COUNT 4.14 10/6/uL (4.7-6.1); WHITE BLOOD CELLS 12.1 10/3/uL (4.5-10.5)
[2016-06-14 10:32] LABS: MANUAL DIFF NO %
[2016-06-14 10:40] LABS: BUN (BLOOD UREA NITROGEN) 26 MG/DL (6-23); CHLORIDE, SERUM 113 MMOL/L (96-112); CO2 (CARBON DIOXIDE) 23 MMOL/L (24-34); CREATININE 0.94 MG/DL (0.70-1.30); GFR AFRICAN AMERICAN 86 ML/MIN (>=60); GFR NON AFRICAN AMERICAN 74 ML/MIN (>=60); GLUCOSE, SERUM 163 MG/DL (60-99); POTASSIUM, SERUM 3.9 MMOL/L (3.5-5.3); SODIUM, SERUM 147 MMOL/L (135-148)
[2016-06-14 12:53] LABS: PROCALCITONIN 1.61 ng/mL (<0.5)
[2016-06-15 12:14] LABS: ALBUMIN 1.8 G/DL (3.5-5.0); BUN (BLOOD UREA NITROGEN) 26 MG/DL (6-23); CALCIUM, SERUM 7.3 MG/DL (8.5-10.4); CHLORIDE, SERUM 117 MMOL/L (96-112); CO2 (CARBON DIOXIDE) 22 MMOL/L (24-34); CREATININE 1.04 MG/DL (0.70-1.30); GFR AFRICAN AMERICAN 76 ML/MIN (>=60); GFR NON AFRICAN AMERICAN 66 ML/MIN (>=60); GLUCOSE, SERUM 189 MG/DL (60-99); POTASSIUM, SERUM 3.5 MMOL/L (3.5-5.3); PREALBUMIN 6.3 MG/DL (17.0-43.0); SGOT(AST) 30 U/L (5-40); SGPT(ALT) 15 U/L (5-65); SODIUM, SERUM 152 MMOL/L (135-148); TOTAL BILIRUBIN 0.9 MG/DL (0-1.2); TOTAL PROTEIN 6.8 G/DL (6.0-8.5)
[2016-06-15 12:15] LABS: A/G RATIO 0.4 (0.7-1.9); ALKALINE PHOSPHATASE 145 U/L (45-117)
[2016-06-16 04:31] LABS: BASOPHILS 0.2 %; BASOPHILS ABSOLUTE 0.02 10/3/uL (0.0-0.16); EOSINOPHILS 0.7 %; EOSINOPHILS ABSOLUTE 0.07 10/3/uL (0.0-0.53); HEMATOCRIT 32.4 % (40.0-51.0); HEMOGLOBIN 10.8 g/dL (13.6-17.8); IMMATURE GRANULOCYTES 1.8 %; IMMATURE GRANULOCYTES ABSOLUTE 0.18 10/3/uL (0.0-0.11); LYMPHOCYTES 17.8 %; LYMPHOCYTES ABSOLUTE 1.81 10/3/uL (0.67-4.30); MEAN CORPUS HGB CONC 33.3 g/dL (32.0-36.0); MEAN CORPUSCULAR HEMOGLOB 27.5 pg (26.0-34.0); MEAN CORPUSCULAR VOLUME 82.4 fL (80-100); MEAN PLATELET VOLUME 8.8 fL (9.2-13.0); MONOCYTES 5.5 %; MONOCYTES ABSOLUTE 0.56 10/3/uL (0.21-1.20); NEUTROPHILS ABSOLUTE 7.55 10/3/uL (2.02-8.40); RBC DISTRIBUTION WIDTH 16.4 % (12.0-16.0); RED CELL COUNT 3.93 10/6/uL (4.7-6.1); WHITE BLOOD CELLS 10.2 10/3/uL (4.5-10.5)
[2016-06-16 04:32] LABS: MANUAL DIFF NO %; PLATELET COUNT 450 10/3/uL (150-400)
[2016-06-16 04:36] LABS: BUN (BLOOD UREA NITROGEN) 27 MG/DL (6-23); CALCIUM, SERUM 7.6 MG/DL (8.5-10.4); CHLORIDE, SERUM 118 MMOL/L (96-112); CO2 (CARBON DIOXIDE) 25 MMOL/L (24-34); CREATININE 1.21 MG/DL (0.70-1.30); GFR AFRICAN AMERICAN 63 ML/MIN (>=60); GFR NON AFRICAN AMERICAN 55 ML/MIN (>=60); POTASSIUM, SERUM 3.5 MMOL/L (3.5-5.3); SODIUM, SERUM 153 MMOL/L (135-148)
[2016-06-16 04:42] LABS: GLUCOSE, SERUM 235 MG/DL (60-99)
[2016-06-17 08:04] LABS: BUN (BLOOD UREA NITROGEN) 27 MG/DL (6-23); CALCIUM, SERUM 7.6 MG/DL (8.5-10.4); CHLORIDE, SERUM 117 MMOL/L (96-112); CO2 (CARBON DIOXIDE) 28 MMOL/L (24-34); CREATININE 1.19 MG/DL (0.70-1.30); GFR AFRICAN AMERICAN 65 ML/MIN (>=60); GFR NON AFRICAN AMERICAN 56 ML/MIN (>=60); GLUCOSE, SERUM 257 MG/DL (60-99); PHOSPHORUS, SERUM 2.2 MG/DL (2.5-4.5); POTASSIUM, SERUM 3.7 MMOL/L (3.5-5.3); SODIUM, SERUM 151 MMOL/L (135-148)
[2016-06-18 05:24] LABS: BE (BASE EXCESS) 2.7 MEQ/L (0 +/- 2.5); HCO3 (ACTUAL BICARBONATE) 26.1 MEQ/L (23-27); INSTRUMENT SERIAL # 8083; PCO2 (CO2 TENSION) 36 MMHG (35-45); PO2 (O2 TENSION) 55 MMHG (79-93); pH 7.47 (7.37-7.43)
[2016-06-18 05:25] LABS: ALLENS TEST Pos; DEVICE vapotherm; HEMOBLOGIN CONTENT 14.5 G/DL (14-18); METHEMOGLOBIN 0.2 % (0-3); O2 CONTENT 18.2 VOL% (18-24); OPERATOR ID 15231; SAMPLE Arterial
[2016-06-18 05:56] LABS: HEMATOCRIT 34.3 % (40.0-51.0); HEMOGLOBIN 10.8 g/dL (13.6-17.8); MEAN CORPUSCULAR HEMOGLOB 26.9 pg (26.0-34.0); MEAN PLATELET VOLUME 9.4 fL (9.2-13.0); PLATELET COUNT 481 10/3/uL (150-400); RBC DISTRIBUTION WIDTH 17.2 % (12.0-16.0); RED CELL COUNT 4.01 10/6/uL (4.7-6.1); WHITE BLOOD CELLS 11.5 10/3/uL (4.5-10.5)
[2016-06-18 06:04] LABS: MANUAL DIFF YES %; MEAN CORPUS HGB CONC 31.5 g/dL (32.0-36.0); MEAN CORPUSCULAR VOLUME 85.5 fL (80-100)
[2016-06-18 06:07] LABS: CHLORIDE, SERUM 116 MMOL/L (96-112); CO2 (CARBON DIOXIDE) 26 MMOL/L (24-34); GFR AFRICAN AMERICAN 58 ML/MIN (>=60); GFR NON AFRICAN AMERICAN 50 ML/MIN (>=60); GLUCOSE, SERUM 300 MG/DL (60-99); SODIUM, SERUM 151 MMOL/L (135-148)
[2016-06-18 06:13] LABS: BUN (BLOOD UREA NITROGEN) 32 MG/DL (6-23)
[2016-06-18 06:55] LABS: ANISOCYTOSIS 1+ (5-10/OIF) (0-5/OIF); BAND NEUTROPHILS 1 %; EOSINOPHILS 1 %; EOSINOPHILS ABSOLUTE (CALC) 0.12 10/3/uL (0.0-0.53); LYMPHOCYTES 11 %; LYMPHOCYTES ABSOLUTE (CALC) 1.27 10/3/uL (0.67-4.30); MONOCYTES 1 %; MONOCYTES ABSOLUTE (CALC) 0.12 10/3/uL (0.21-1.20); NEUTROPHILS ABSOLUTE (CALC) 10.01 10/3/uL (2.02-8.40); PLATELET ESTIMATE INC (ADEQUATE); SEGMENTED NEUTROPHIL (0) 86 %; TOTAL NUCLEATED CELLS 100
[2016-06-19 05:29] LABS: BASOPHILS 0.2 %; BASOPHILS ABSOLUTE 0.02 10/3/uL (0.0-0.16); EOSINOPHILS 0.5 %; EOSINOPHILS ABSOLUTE 0.06 10/3/uL (0.0-0.53); HEMATOCRIT 31.7 % (40.0-51.0); HEMOGLOBIN 9.8 g/dL (13.6-17.8); IMMATURE GRANULOCYTES 0.8 %; LYMPHOCYTES 20.9 %; LYMPHOCYTES ABSOLUTE 2.49 10/3/uL (0.67-4.30); MANUAL DIFF NO %; MEAN CORPUS HGB CONC 30.9 g/dL (32.0-36.0); MEAN CORPUSCULAR HEMOGLOB 26.8 pg (26.0-34.0); MEAN CORPUSCULAR VOLUME 86.8 fL (80-100); MEAN PLATELET VOLUME 9.8 fL (9.2-13.0); MONOCYTES 5.7 %; MONOCYTES ABSOLUTE 0.68 10/3/uL (0.21-1.20); NEUTROPHILS 71.9 %; NEUTROPHILS ABSOLUTE 8.54 10/3/uL (2.02-8.40); PLATELET COUNT 613 10/3/uL (150-400); RBC DISTRIBUTION WIDTH 17.1 % (12.0-16.0); RED CELL COUNT 3.65 10/6/uL (4.7-6.1); WHITE BLOOD CELLS 11.9 10/3/uL (4.5-10.5)
[2016-06-19 05:44] LABS: CALCIUM, SERUM 8.6 MG/DL (8.5-10.4); CHLORIDE, SERUM 110 MMOL/L (96-112); GFR AFRICAN AMERICAN 35 ML/MIN (>=60); GFR NON AFRICAN AMERICAN 30 ML/MIN (>=60); GLUCOSE, SERUM 320 MG/DL (60-99); SODIUM, SERUM 152 MMOL/L (135-148)
[2016-06-19 05:45] LABS: BUN (BLOOD UREA NITROGEN) 60 MG/DL (6-23); CO2 (CARBON DIOXIDE) 33 MMOL/L (24-34); CREATININE 1.97 MG/DL (0.70-1.30)
== END 2016-06-19 18:23 | DRG 871 ==
LOC: ER 15:01 → 4SO 19:12 → IMCU 06-13 20:47 → 4SO 06-16 16:49
PROVIDERS: Emergency Medicine; Hospitalist; Internal Medicine
DX: A41.9 Sepsis, unspecified organism (principal); J18.9 Pneumonia, unspecified organism; J96.21 Acute and chronic respiratory failure with hypoxia; G93.41 Metabolic encephalopathy; J90 Pleural effusion, not elsewhere classified; E87.0 Hyperosmolality and hypernatremia; L03.115 Cellulitis of right lower limb; F03.90 Unspecified dementia, unspecified severity, without behavioral disturbance, psychotic disturbance, mood disturbance, and anxiety; I69.354 Hemiplegia and hemiparesis following cerebral infarction affecting left non-dominant side; R13.10 Dysphagia, unspecified; J98.11 Atelectasis; E11.9 Type 2 diabetes mellitus without complications; R65.20 Severe sepsis without septic shock; Y95 Nosocomial condition; Z87.442 Personal history of urinary calculi; J45.909 Unspecified asthma, uncomplicated; E03.9 Hypothyroidism, unspecified; F41.9 Anxiety disorder, unspecified; Z99.3 Dependence on wheelchair; Z79.82 Long term (current) use of aspirin; Z79.02 Long term (current) use of antithrombotics/antiplatelets; Z79.4 Long term (current) use of insulin; Z79.84 Long term (current) use of oral hypoglycemic drugs; Z79.51 Long term (current) use of inhaled steroids; R53.81 Other malaise; J34.9 Unspecified disorder of nose and nasal sinuses; Z66 Do not resuscitate; Z90.49 Acquired absence of other specified parts of digestive tract; Z88.4 Allergy status to anesthetic agent; I69.334 Monoplegia of upper limb following cerebral infarction affecting left non-dominant side; M79.621 Pain in right upper arm; M79.641 Pain in right hand; M25.531 Pain in right wrist; Z91.81 History of falling; I69.392 Facial weakness following cerebral infarction; I69.391 Dysphagia following cerebral infarction; Z74.01 Bed confinement status; I10 Essential (primary) hypertension
CPT/HCPCS: 36600; 70553; 71010; 71275; 73030-RT; 73130-RT; 74000; 74230; 80048; 80053; 80202; 81001; 82805; 82947; 82962; 83036; 83605; 83735; 83880; 84100; 84132; 84134; 84145; 84443; 84484; 85025; 85610; 85730; 87040; 87641; 92610-GN; 92611-GN; 93005; 93970; 93971; 94640; 97162-GP; 99285; A9270-GY; A9577; C9113; G8978-CN-GP; G8979-CL-GP; G8996-CL-GN; G8996-CN-GN; G8997-CL-GN; G8997-CN-GN; G8998-CL-GN; G8998-CN-GN; J0360; J0692; J1205; J2405; J2930; J3370